=== PATIENT | male | born 1980 | race Two or more races ===

== ENCOUNTER 2021-06-05 15:08 | Emergency (ER) | payer BC, OTHER ==
[~2021-06-05] VITALS: Ht 167.6 cm; Wt 72.6 kg
[2021-06-05] MEDS ORDERED: LIDOCAINE 1% HCL (LOCAL ANESTH.) INJ 20ML MDV IJ ONE (16:45)
[2021-06-05] MEDS ORDERED: TETANUS-DIPTH-ACEL PERTUSSIS 0.5ML SYR Tdap IM ONE (17:15)
[2021-06-05] MEDS ORDERED: BACITRACIN TOP OINT 1 UD PKG TOP ONE ×2 (18:23→18:30)
[2021-06-05] MEDS ORDERED: NEOMYCIN-BACITRACIN-POLYM 15GM TOP OINT TOP ONE (18:24)
[2021-06-05 20:06] VITALS: BP 137/89
== END 2021-06-05 20:13 | disposition home or self-care (01) ==
LOC: EDBD 15:08 → ER 15:08
DX: S61.511A Laceration without foreign body of right wrist, initial encounter (principal); X58.XXXA Exposure to other specified factors, initial encounter; Y93.89 Activity, other specified; Y92.89 Other specified places as the place of occurrence of the external cause; Y99.8 Other external cause status
CPT/HCPCS: 12002; 73110; 90471; 90715; 99285; J2001